=== PATIENT | male | born 1980 | race Two or more races ===

== ENCOUNTER → 2018-12-05 | Day surgery (SDC) | payer OTHER ==
[~2018-12-05] MED LIST: ELBA1TAB PO; IV RINGERS,LACTATED 1000ML 1,000 ML IV SCH; LIDOCAINE 1% PF 2 ML VIAL. ID PRN; MIDAZOLAM HCL/PF 2 MG/2 ML VIAL. IV PRN; PROPOFOL 40 ML IV ONE; fentaNYL PF VIAL 100 MCG/2 ML VIAL IV PRN
[2018-12-05 13:31] VITALS: BP 132/61
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
== END | disposition home or self-care (01) ==
LOC: ENDOS 11:27 → EEVIPCON 12:30
PROVIDERS: ATTEND Internal Medicine Gastroenterology
DX: K29.50 Unspecified chronic gastritis without bleeding (principal); K75.9 Inflammatory liver disease, unspecified; Z98.890 Other specified postprocedural states; Z79.899 Other long term (current) drug therapy; Z87.891 Personal history of nicotine dependence; Z72.89 Other problems related to lifestyle
CPT/HCPCS: 43235; J2704

== ENCOUNTER → 2019-05-01 | Day surgery (SDC) | payer OTHER ==
[~2019-05-01] VITALS: Ht 175.3 cm; Wt 88.5 kg
[~2019-05-01] MED LIST changes: +ACETAMINOPHEN 500 MG TABLET PO PRN; +BUPIVACAINE-EPI 0.25%-1:200000 MPF 30 ML VIAL. INJ ONE; +DEXAMETHASONE SOD PHOS 4 MG/ML VIAL ONE; +GLYCOPYRROLATE 1 MG/5 ML VIAL. ONE; +HYDROmorphone 2 MG/ML VIAL IV PRN; -LIDOCAINE 1% PF 2 ML VIAL. ID PRN; +LIDOCAINE 2% PF 5 ML VIAL. ONE; -MIDAZOLAM HCL/PF 2 MG/2 ML VIAL. IV PRN; +MIDAZOLAM HCL/PF 2 MG/2 ML VIAL. ONE; +MORPHINE SULFATE 2 MG/ML VIAL. IV PRN; +ONDANSETRON PF 4 MG/2 ML VIAL. IV PRN; +ONDANSETRON PF 4 MG/2 ML VIAL. ONE; +PROCHLORPERAZINE 10 MG/2 ML VIAL. IV PRN; +PROPOFOL 20 ML IV ONE; -PROPOFOL 40 ML IV ONE; +fentaNYL PF VIAL 100 MCG/2 ML VIAL ONE; +oxyCODONE/APAP 5/325 1 TAB TABLET PO ONE
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
--- NOTE | 2019-05-01 08:51 | PDOC4 ---
Operative Note Operative Note Date: 05/01/2019 Preoperative diagnosis: Left breast mass Postoperative diagnosis: Same Procedure: Left breast excisional biopsy Surgeon: Barrington Specimen: Left breast biopsy Dictation: Patient is a 38-year-old male is complained of a painful nodules left breast procedure of excisional biopsy was explained to the patient detail risk benefits were also discussed including bleeding infection alternatives to this procedure also discussed with the patient is seemed to understand gave both verbal and written consent to have the procedure performed. Patient was taken to the operating room placed in supine position general anesthesia was initiated once patient was sleep and intubated his left chest was prepped and draped usual sterile fashion using ChloraPrep and area around the nodule was injected with quarter percent Marcaine with epinephrine incision was made with 15 blade scalpel this carried down through the subcutaneous tissue using electrocautery divided hemostasis the mass was excised with electrocautery and sent for pathology with a long suture being the lateral edge and the short suture being the superior edge of the mass. Wound was then closed in 2 layers a deep layer running 3-0 Vicryl and skin was reapproximated for septic and a Monocryl Mastisol Steri-Strips and island dressing were applied. The patient was awakened and excavated operating room taken to recovery in stable condition all sponge instrument needle counts listed as correct S May blood loss 5 mL. ANTONIO BRANTLEY MD May 01, 2019 08:51
[2019-05-01 09:31] VITALS: BP 117/71
--- NOTE | 2019-05-06 11:07 | PATHOLOGY ---
[facility] Accession Number: [id number] . 01 Material submitted: . breast - LEFT BREAST BIOPSY, LONG STITCH LATERAL, SHORT STITCH SUPERIOR. Modifiers: left . 01 Clinical history: . Left breast pain. . 02 Diagnosis: Breast, left, biopsy: - Predominantly unremarkable adipose tissue with associated focal breast tissue. - Negative for malignancy. - See comment. (MAP:[facility]; 05/05/2019) S 05/05/2019 0944 Local . 02 Comment: Predominantly mature adipose tissue is present in this biopsy specimen. Focal breast tissue is noted. These findings may be indicative of a lipoma in a correct clinical setting. Correlation is recommended. . Co-review: Dr. Melchor . (MAP:[facility]; 05/05/2019) . 02 Electronically signed: . Kt Sol MD, Pathologist NPI- [id number] . 01 Gross description: . Received in formalin labeled "Bladimir Neff, left breast biopsy long stitch lateral short stitch superior" is an oriented breast lumpectomy specimen weighing 24 g and measuring 6.5 cm from superior to inferior, 4.4 cm from medial to lateral, 1.9 cm from anterior to posterior. The specimen is inked as follows: superior-red, inferior-blue, anterior-green, posterior-black, lateral-orange, medial-yellow. The specimen is sectioned from superior to inferior into 12 slices. The cut surface is entirely comprised of yellow lobulated soft tissue without a mass. A biopsy clip is not identified. Certified Appliance Service Technician sections are submitted as follows: A1 entire slice 1, superior margin, perpendicular sections A2-A3 entire slice 4 A4-A5 entire slice 7 A6-A7 entire slice 10 A8 sales representative groceries slice 12, inferior margin, perpendicular sections The specimen is removed from the patient at 0820 and placed in formalin at 0825 on May 01, 2019. The specimen is removed from formalin at 2340 on May 01, 2019. ([facility] [facility] 05/01/2019 1623 Local . 02 Pathologist provided ICD-10: N64.4 . 02 CPT . 352032 Specimen Comment: A courtesy copy of this report has been sent to Specimen Comment: [phone], . Specimen Comment: Report sent to / DR FARNSWORTH Performed at: 01 [facility] [address], [place] [id number] MD Alexander Lee MD Phone: [phone] Performed at: 02 [facility] [address] [place], [place] [id number] MD Trae Vivar MD Phone: [phone]
== END ==
LOC: SURG 06:40 → EEVIPCON 08:30
PROVIDERS: ATTEND Surgery
DX: N63.20 Unspecified lump in the left breast, unspecified quadrant (principal)
CPT/HCPCS: 19120; A7015; J1100; J2001; J2250; J2405; J2704; J3010; J3490; J0696